=== PATIENT | female | born 1965 | race African-American/Black ===

== ENCOUNTER 2017-03-13 10:23 | Emergency (ER) | payer OTHER ==
[~2017-03-13 10:23] MED LIST: ACET500CAP PO; ADVIL PO; ALAVERT10 MG PO; AMARYL2 PO; AMARYL4 PO; ANASPAZ0.125 MG PO; ATRONASAL3 NAS; BEN25UDL PO; BENTYL20 PO; COZ50 PO; DIFLUNISAL500 MG PO; FLAGYL250 MG PO; FLORASTOR250 MG PO; FOLIC PO; GLUCOPHAGE1000 MG PO; GLUCPH PO; KAPIDEX60 MG PO; LEVAQUIN5T PO; LEXAPRO10 PO; MOBIC15 MG PO; MTX2.5 PO; NORCO1 TA1 PO; NORV5 PO; PERCOCET1 TA2 PO; PLAQ200B PO; PNEUMOVAX 23 IJ; PRISTIQ50 MG PO; PROAIR HFA INH; PROBIOTIC PO; REG PO; REG5 PO; SINGULAIR1 PO; SKELAXIN8 PO; SYMBICORT 160/41 INH INH; T PO; TEG200 PO; TREXALL15 MG PO; ULTRAM50 PO; Z-PAK PO; ZOFRAN4 PO; ZYRTEC ALLGY10 MG PO; [UNRECOGNIZED DRUG - OTHER] IJ
[2017-03-13 11:39] LABS: A/G RATIO 0.9 (0.7-1.9); ALBUMIN 3.9 G/DL (3.5-5.0); ALKALINE PHOSPHATASE 103 U/L (45-117); BUN (BLOOD UREA NITROGEN) 11 MG/DL (6-23); CALCIUM, SERUM 9.3 MG/DL (8.5-10.4); CHLORIDE, SERUM 111 MMOL/L (96-112); CO2 (CARBON DIOXIDE) 21 MMOL/L (24-34); CREATININE 0.95 MG/DL (0.55-1.02); GFR AFRICAN AMERICAN 81 ML/MIN (>=60); GFR NON AFRICAN AMERICAN 70 ML/MIN (>=60); GLOBULIN 4.3 G/DL (2.5-4.1); GLUCOSE, SERUM 89 MG/DL (60-99); SGOT(AST) 21 U/L (5-40); SGPT(ALT) 36 U/L (5-65); SODIUM, SERUM 140 MMOL/L (135-148); TOTAL BILIRUBIN 0.5 MG/DL (0-1.2); TOTAL PROTEIN 8.2 G/DL (6.0-8.5)
[2017-03-13 11:43] LABS: ASCORBIC ACID (UR NOT ORDER) 40 (NEG); BILIRUBIN, URINE NEGATIVE (NEG); ER URINALYSIS TAT 0 Hrs 25 Mins; KETONE, URINE NEGATIVE (NEG); LEUKOCYTE ESTERASE(NOT OR TRACE (NEG); NITRITE (URINE) NEG (NEG); WBC (NOT ORDERED) (RFLEX) 1 (0-5)
[2017-03-13 12:41] LABS: TROPONIN I <0.02 NG/ML (<0.05)
[2017-03-13 14:26] LABS: BASOPHILS 0.2 %; BASOPHILS ABSOLUTE 0.03 10/3/uL (0.0-0.16); EOSINOPHILS 0.4 %; EOSINOPHILS ABSOLUTE 0.05 10/3/uL (0.0-0.53); HEMATOCRIT 41.2 % (36.0-48.0); HEMOGLOBIN 13.9 g/dL (12.0-16.0); IMMATURE GRANULOCYTES 0.2 %; LYMPHOCYTES 41.1 %; LYMPHOCYTES ABSOLUTE 5.13 10/3/uL (0.67-4.30); MEAN CORPUS HGB CONC 33.7 g/dL (32.0-36.0); MEAN PLATELET VOLUME 9.3 fL (9.2-13.0); MONOCYTES 8.9 %; MONOCYTES ABSOLUTE 1.11 10/3/uL (0.21-1.20); NEUTROPHILS 49.2 %; NEUTROPHILS ABSOLUTE 6.13 10/3/uL (2.02-8.40); PLATELET COUNT 441 10/3/uL (150-400); RBC DISTRIBUTION WIDTH 14.3 % (12.0-16.0); RED CELL COUNT 4.48 10/6/uL (4.0-5.6); WHITE BLOOD CELLS 12.5 10/3/uL (4.5-10.5)
[2017-03-13 14:30] LABS: IMMATURE GRANULOCYTES ABSOLUTE 0.03 10/3/uL (0.0-0.11); MANUAL DIFF NO %
[2017-03-13 14:47] LABS: ER DIFF TAT 0 Hrs 25 Mins; LYMPHOCYTES 36 %; MONOCYTES 10 %; MONOCYTES ABSOLUTE (CALC) 1.25 10/3/uL (0.21-1.20); NEUTROPHILS ABSOLUTE (CALC) 6.75 10/3/uL (2.02-8.40); PLATELET ESTIMATE SLT INC (ADEQUATE); RBC MORPHOLOGY NORM (NORMAL); SEGMENTED NEUTROPHIL (0) 54 %; TOTAL NUCLEATED CELLS 100
== END 2017-03-13 16:20 | disposition home or self-care (01) ==
LOC: ER 10:23
PROVIDERS: Emergency Medicine
DX: R10.12 Left upper quadrant pain (principal); J45.909 Unspecified asthma, uncomplicated; I10 Essential (primary) hypertension; Z87.442 Personal history of urinary calculi; E11.9 Type 2 diabetes mellitus without complications; Z90.710 Acquired absence of both cervix and uterus; Z88.5 Allergy status to narcotic agent; Z90.49 Acquired absence of other specified parts of digestive tract; Z91.041 Radiographic dye allergy status; Z88.6 Allergy status to analgesic agent; Z88.1 Allergy status to other antibiotic agents; Z79.84 Long term (current) use of oral hypoglycemic drugs; Z79.899 Other long term (current) drug therapy
CPT/HCPCS: 74176; 80053; 81001; 82962; 83690; 84484; 85025; 93005; 96374; 99285; A9270-GY; J2405